=== PATIENT | male | born 1945 | race Caucasian/White ===

== ENCOUNTER 2019-12-11 05:10 | Day surgery (SDC) | payer OTHER, SELFPAY ==
[2019-12-10 15:32] VITALS: BMI 23.1
[2019-12-11] VITALS (13 sets, daily range): BP systolic 130–167; BP diastolic 73–110; PULSE 59–73; RESP 13–19; TEMP 37–37.4; O2SAT 97–100
--- NOTE | ~2019-12-11 | XR_ITS ---
EXAMINATION: XR chest 1V portable DATE: 12/11/2019 16:13 INDICATION: Pacemaker insertion TECHNIQUE: frontal view of the chest was obtained. COMPARISON: None FINDINGS: The lungs are clear with no focal airspace opacities, pulmonary edema, pleural effusion or pneumothor ax. The cardiomediastinal silhouette is normal. Skin serena overlying a left infraclavicular cardiac pacemaker with 2 leads with distal tip projecting over the right atrial appendage and at the apex of the right ventricle. Moderate thoracic spondylosis. IMPRESSION: 1. Dual-lead cardiac pacemaker in expected position. No acute cardiopulmonary disease. Reviewed, dictated and finalized at location A. R INSPECTOR IMPRESSION: 1. Dual-lead cardiac pacemaker in expected position. No acute cardiopulmonary d isease.
--- NOTE | ~2019-12-11 | XR_ITS ---
EXAMINATION: XR chest 2V DATE: 12/12/2019 09:04 INDICATION: Pacer placement. TECHNIQUE: Frontal and lateral views of the chest were obtained. COMPARISON: Chest single view 12/11/2019 FINDINGS: There is a tiny left pleural effusion. No pneumonia or pneumothorax. The heart size is norm al. There is a left chest wall pacer with leads in the right atrium and right ventricle. There is a c ompression fracture of mid thoracic spine, likely chronic. IMPRESSION: 1. Tiny left pleural effusion. Reviewed, dictated and finalized at location A. UAGE AND LITERATURE DIVISION CHAIR
--- NOTE | 2019-12-11 12:30 | ECG_ITS ---
Measurements Intervals [place] Rate: 61 P: 66 MN: 178 QRS: -66 QRSD: 182 T: 74 QT: 476 QTc: 482 Interpretive Statements ELECTRONIC ATRIAL PACEMAKER ELECTRONIC VENTRICULAR PACEMAKER NO FURTHER INTERPRETATION IS POSSIBLE ATYPICAL ECG Electronically Signed On 12-11-2019 16:19:02 CONCRETE PUMP OPERATOR HELPER by Tim Feliciano D.O.
--- NOTE | 2019-12-11 13:24 | P.HP_ITS ---
H&P: HPI History of Present Illness Chief complaint: Syncope, Complete AV Block Narrative: Wes Key is a 74 year old male with history of hypertension, dyslipidemia, was seen because of syncope, noted to have abnormal EKG, subsequently Holter monitor revealed multiple episodes of second-degree and then subsequent episodes of third-degree AV block with 3-1 conduction. He was in the office for stress test, which also showed the same thing post exercise complete AV block, he will be admitted to the hospital for elective insertion of permanent pacemaker Review of Systems Constitutional: Constitutional: Reports fatigue, Reports lethargy and Reports weakness ENT: Reports as per HPI Cardiovascular: Cardiovascular: Reports as per HPI, Denies chest pain and Rep orts palpitations PMFSH Social History Social History Gender identity (if verbalized by the patient): Male Meds Home Medications and Allergies Home Medications Medication Instructions Recorded Confirmed Type allopurinol 300 mg PO DAILY 12/10/19 12/10/19 History aspirin [Aspirin Low Dose] 32 mg PO DAILY 12/10/19 12/10/19 History calcium carbonate [Calcium 600] 600 mg PO DAILY 12/10/19 12/10/19 History clotrimazole See Rx Instructions .ROUTE .COMPLEX 12/10/19 12/10/19 History fluticasone propionate [Aller-Zach] 1 spray INTRANASAL DAILY 12/10/19 12/10/19 History meloxicam 15 mg PO DAILY 12/10/19 12/10/19 History oxybutynin chloride 10 mg PO DAILY 12/10/19 12/10/19 History pravastatin 40 mg PO DAILY 12/10/19 12/10/19 History tamsulosin 0.8 mg PO DAILY 12/10/19 12/10/19 History Allergies Allergy/AdvReac Type Severity Reaction Status Date / Time No Known Allergies Allergy Verified 12/10/19 15:39 Exam Narrative: Exam Narrative: Awake alert oriented x3 not in acute distress Neck is supple no obvious JVD, no carotid bruit Chest: Good air entry bilaterally, lungs are clear to auscultation and percussion bilaterally Cardiovascular: Regular rate and rhythm, 2/6 systolic murmur noted left sternal border Abdomen: Soft nontender bowel sounds positive Extremities: No edema has good pulses distally bilaterally Assessment and Plan Assessment and plan (1) Complete AV block: Code(s): I44.2 - Atrioventricular block, complete Status: Acute Assessment and Plan: He will need permanent pacemaker with dual-chamber pacer, the procedure was discussed with the patient, risks, benefits, and alternative diagnostic and therapeutic measures were explained. He agreed with the procedure (2) Syncope: Code(s): R55 - Syncope and collapse Status: Acute Assessment and Plan: Due to complete AV block (3) Coronary artery disease: Code(s): I25.10 - Atherosclerotic heart disease of [place] coronary artery without angina pectoris Status: Acute
[2019-12-11 13:27] LABS: Basophils Absolute Auto 0.1 K/mm3 (0.0-0.1); Basophils Percent Auto 1.2 % (0.2-1.2); Eosinophils Absolute Auto 0.2 K/mm3 (0-0.3); Eosinophils Percent Auto 2.2 % (0-4.4); Hemoglobin 14.5 g/dL (14.0-18.0); Immature Granulocyte Absolute 0.02 K/mm3 (0.00-0.031); Immature Granulocyte Percent A 0.2 % (0-0.5); Lymphocytes Absolute Auto 2.19 K/mm3 (0.9-3.2); Lymphocytes Percent Auto 26.9 % (18.3-44.2); Mean Corpuscular Hemoglobin 31.3 pg (26-34); Mean Platelet Volume 10.6 fl (7.4-10.4); Monocytes Absolute Auto 0.8 K/mm3 (0.1-0.6); Neutrophils Absolute Auto 4.8 K/mm3 (1.3-6.7); Neutrophils Percent Auto 59.5 % (45.5-73.1); Platelet Count Result 270 k/mm3 (150-375); Red Blood Count 4.63 M/mm3 (4.6-6.20); Red Cell Distribution Width 13.6 % (11.5-14.5); White Blood Count 8.1 K/mm3 (4.5-10.0)
[2019-12-11] MEDS: SODIUM CHLORIDE 0.9% IV 500 ML 100 ML (13:30)
[2019-12-11 13:40] LABS: Blood Urea Nitrogen 22 mg/dL (9-20); Calcium 9.5 mg/dL (8.4-10.2); Carbon Dioxide 23 mmol/L (22-30); Chloride 104 mmol/L (98-107); Estimated CRCL calculation 66 ml/min; Estimated Glomerular Filt Rate > 60; Glucose 85 mg/dL (75-110); Potassium 3.8 mmol/L (3.4-5.0); Sodium 139 mmol/L (137-145)
[2019-12-11 13:49] LABS: Prothrombin Time 12.8 Seconds (11.1-14.7)
--- NOTE | 2019-12-11 15:46 | WPDCARDPROC ---
Cardiac Cath Procedure Note Date of procedure:: 12/11/19 Performing physician:: Roni Johnson MD PATIENT NAME: Wes Key MR #: [id number] DATE OF PROCEDURE: December 11, 2019 PROCEDURE: 1-Dual Chamber Permanent Pacemaker Implantation using fluoroscopy 2. Left subclavian vein venous access using ultrasound guidance. 3. Conscious sedation using 1 mg of Versed 25 mg fentanyl, starting time is 2:00 p.m. ending time is 3:45 p.m. RADAR REPAIRER: Roni Johnson M.D. CLINICAL HISTORY: Symptomatic complete heart block, Syncope PROCEDURE: In a post-absoptive state, the patient was brought to the Cardiac Catheterization Laboratory. The left hemithorax was prepped and draped in the usual sterile fashion. The skin was infiltrated with 1% Xylocaine for regional anesthesia. One venipuncture was easily made into the left subclavian vein using a micro puncture kit. The guidewire was positioned in the right atrium while a pacemaker pocket was constructed with sharp and blunt dissection and electrocautery. A 7.0 Safe sheath was used to pass the Medtronic ventricular 4074-58 lead to the right ventricle. Another 7.0 [place] Safe sheath was used to pass the Medtronic atrial 5076-52 lead to the right atria appendage. Good pacing and sensing parameters were obtained. The leads were sutured in place with 2-0 Silk ties, following which the guide wires were removed. The leads were then attached to a dual chamber pulse generator, which was noted to be pacing and sensing appropriately. The wound was then irrigated with Vancomycin solution following which, subcutaneous tissues were closed with 2.0 Vicryl, and then Johanna. Aquacel Ag was also applied to the pacemaker incision site along with a pressure dressing. The patient tolerated the procedure very well, experienced no difficulties, and returned to her room in good condition. Atrial Lead: Medtronic model # 5076-52, serial # [id number] Threshold: 0.5 Volts, 0.5 mA Impedance: 555 Ohms P Wave sensin.6 mV Ventricular Lead: Medtronic model # 4074-58, serial # [id number] Threshold: 0.25 Volts, 0.5 mA Impedance: 817 Ohms R Wave sensin mV Pulse Generator: [employer] [facility] [place] XT DR CAVANAUGH, serial # [id number] Mode: DDD Programmed Rate: 60 Upper Tracking Rate: 130 Upper Sensor Rate: 130 AV Delay (Paced): 180 AV Delay (Sensed): 150 Atrial Ventricular Output Amplitude: 3.5 Volts 3.5 Volts Pulse Duration: 0.4 msec 0.4 msec Sensitivity: 0.3 mV 0.6 mV
--- NOTE | 2019-12-11 15:50 | SUR.PHASEII ---
BEGIN PHASE II RECOVERY. RETURNS TO CHARGING CRANE OPERATOR 5 VIA STRETCHER S/P PERMANENT PACEMAKER PLACEMENT TO L. CHEST W/ DR. GORDON . AWAKE AND ALERT. DENIES PAIN OR SOB ON ARRIVAL. L. UPPER CHEST W/ C/D/I AQUACELL DRESSING PRESENT. NO REDNESS OR SWELLING NOTED. L. RADIAL PULSE STRONG. L. FINGERS W/ WNL CAPILLARY REFILL, MOVEMENT AND SENSATION. REVIEWED MOVEMENT RESTRICTIONS FOR L. ARM AND BEDREST ORDERS. POST PPM EKG COMPLETED AND SLING PLACED ON L. ARM. AWAIT PCXR. MONITOR VPACED AT 61. WILL MONITOR.
--- NOTE | 2019-12-11 16:50 | SUR.PHASEII ---
1650: END PHASE II RECOVERY. PT. ADMITTED TO EXTENDED RECOVERY AT THIS TIME POST PPM INSERTION PROCEDURE. PT. TO REMAIN IN CAR DISTRIBUTOR 5 OBSERVATION STATUS. CARE COORDINATION AND ADMITTING NOTIFIED. SEE PCS FOR CONTINUED DOCUMENTATION. L. UPPER CHEST DRESSING UNCHANGED. REMAINS PAIN FREE. L. RADIAL PULSE REMAINS STRONG W/ CAP REFILL, SENSATION, MOVEMENT OF L. HAND WNL. SLING REMAINS ON L. ARM. PCXR POST PROCEDURE HAS BEEN COMPLETED. VSS. MONITOR AV PACED AT 60. IVF'S RUNNING ORDERED. WILL CONTINUE TO MONITOR. , NESTOR, AT BEDSIDE.
[2019-12-11] MEDS: SODIUM CHLORIDE 0.9% IV 1,000 ML 50 ML IV CONT (18:30)
--- NOTE | 2019-12-11 19:31 | ADMGEN ---
1651: This patient, Wes Key, was admitted to EXTENDED RECOVERY S/P INSERTION OF PPM IN [facility]. Patient/family oriented to hospital policies and general routines including ID bracelet, bed and alarms, visiting hours, pain management, procedures, bathroom and other care routines, personal items, smoking policy, room service/diet, and visiting hours. Valuables list has been completed. Information on how to activate the Rapid Response Team has been discussed. Patient/Family are encouraged to report perceived risks to care and to ask questions if they do not understand what they are told or what they should do.
[2019-12-11] MEDS: PRAVASTATIN SODIUM 20 MG TABLET 40 MG PO (19:53)
[2019-12-11] MEDS: CALCIUM CARBONATE (OSCAL) 500 MG TABLET PO (19:54)
[2019-12-11] MEDS: TAMSULOSIN HCL 0.4 MG CAPSULE 0.8 MG PO (19:54)
[2019-12-11] MEDS: ACETAMINOPHEN 325 MG TABLET 650 MG PO (22:28)
[2019-12-12] VITALS: BP 128/68; PULSE 71; RESP 16; O2SAT 96
[2019-12-12 02:00] VITALS: PULSE 66
[2019-12-12 04:00] VITALS: BP 144/70; PULSE 74; RESP 16; TEMP 37.2; O2SAT 96
[2019-12-12 06:00] VITALS: PULSE 80
[2019-12-12 07:56] VITALS: PULSE 76
[2019-12-12] MEDS: METOPROLOL SUCCINATE EXT REL 25 MG TABCR PO (07:56)
[2019-12-12] MEDS: MELOXICAM 7.5 MG TABLET 15 MG PO (07:56)
[2019-12-12] MEDS: ASPIRIN 81 MG ENTERIC TABLET PO (07:57)
[2019-12-12] MEDS: allopurinoL 300 MG TABLET PO (07:57)
[2019-12-12] MEDS: FLUTICASONE PROPIONATE 0.05% NA SPR 16 GM BTL (*BKC) 1 SPRAY NASAL (07:57)
[2019-12-12 08:00] VITALS: BP 144/78; PULSE 79; PULSE 86; RESP 14; TEMP 37.4; O2SAT 96
--- NOTE | 2019-12-12 08:09 | PM.DS ---
DS: Diagnosis Admitting Diagnosis Admitting Diagnosis: Atrioventricular block, complete DS: Summary Time Spent with Patient Time attestation: Total time spent providing and/or coordinating discharge services: He is admitted to the hospital for elective insertion of permanent pacemaker, he underwent pacemaker placement with dual-chamber pacer, today's am seeing any feels well the pacing is appropriate, the discharged home on the above medication, to have a follow-up with me in 1 week for serena removal Exam Narrative: Exam Narrative: Awake alert oriented x3 not in acute distress Neck is supple no obvious JVD, no carotid bruit Chest: Good air entry bilaterally, lungs are clear to auscultation and percussion bilaterally Cardiovascular: Regular rate and rhythm, 2/6 systolic murmur noted left sternal border Abdomen: Soft nontender bowel sounds positive Extremities: No edema has good pulses distally bilaterally DS: Data Data Completed and Pending Labs on day of discharge: Labs from last 24 hours 12/11/19 12/11/19 12/11/19 13:22 13:22 13:22 WBC 8.1 RBC 4.63 Hgb 14.5 Hct 44.0 MCV 95.0 MCH 31.3 MCHC 33.0 RDW 13.6 Plt Count 270 MPV 10.6 H Immature Gran % (Auto) 0.2 Neut % (Auto) 59.5 Lymph % (Auto) 26.9 [place] % (Auto) 10.0 H Eos % (Auto) 2.2 Baso % (Auto) 1.2 Lymph # (Auto) 2.19 [place] # (Auto) 0.8 H Eos # (Auto) 0.2 Baso # (Auto) 0.1 Abs Immat Gran (auto) 0.02 Absolute Neuts (auto) 4.8 Absolute Nucleated RBC 0.0 Nucleated RBC % 0.0 PT 12.8 INR 1.0 Sodium 139 Potassium 3.8 Chloride 104 Carbon Dioxide 23 BUN 22 H Creatinine 0.90 Estim Creat Clear Calc 66 Estimated GFR > 60 Glucose 85 Calcium 9.5 Discharge Plan Discharge Patient Disposition: Home, Self-Care Discharge Medications: Continued oxybutynin chloride 10 mg Tablet Extended Release 24hr 10 mg PO DAILY RF: 0 pravastatin 40 mg Tablet 40 mg PO DAILY RF: 0 meloxicam 15 mg Tablet 15 mg PO DAILY RF: 0 aspirin [Aspirin Low Dose] 81 mg Tablet,Delayed Release (Dr/Ec) 81 mg PO DAILY RF: 0 calcium carbonate [Calcium 600] 600 mg calcium (1,500 mg) Tablet 600 mg PO DAILY RF: 0 tamsulosin 0.4 mg Capsule 0.8 mg PO DAILY RF: 0 allopurinol 300 mg Tablet 300 mg PO DAILY RF: 0 fluticasone propionate [Aller-Zach] 50 mcg/actuation [place],Suspension 1 spray INTRANASAL DAILY RF: 0 clotrimazole cream See Rx Instructions .ROUTE .COMPLEX RF: 0
--- NOTE | 2019-12-12 08:15 | PC.NURSE ---
DR. GORDON HERE TO SEE PT. CONDITION UPDATE GIVEN. [employer] PACEMAKER REP HERE TO INTERROGATE NEW PPM.
--- NOTE | 2019-12-12 08:55 | PC.NURSE ---
DOWN VIA WC FOR 2 VIEW CXR ORDERED.
--- NOTE | 2019-12-12 09:06 | PC.NURSE ---
RETURNS TO COURT REGISTRY OFFICER 5 FROM 2 VIEW CXR VIA WC.
--- NOTE | 2019-12-12 09:38 | PC.NURSE ---
NOTIFIED DR. GORDON OF RESULTS OF 2VIEW CXR POST PPM. OK TO PROCEED W/ DISCHARGE HOME.
== END 2019-12-12 10:00 | disposition home or self-care (01) ==
LOC: ANHCATHLAB 12:59 → ANHCPC 17:18
PROVIDERS: Visit Provider Specialist
PROC: 0JH606Z Insertion of Pacemaker, Dual Chamber into Chest Subcutaneous Tissue and Fascia, Open Approach (ICD-10-PCS; CPT 33208; principal; 2019-12-11 14:00)
DX: I44.2 Atrioventricular block, complete (principal); R55 Syncope and collapse; I25.10 Atherosclerotic heart disease of native coronary artery without angina pectoris; I48.91 Unspecified atrial fibrillation; I10 Essential (primary) hypertension; E78.5 Hyperlipidemia, unspecified
CPT/HCPCS: 33208; 36415; 71045; 71046; 80048; 85025; 85610; 93005; A9270; C1779; C1785; C1894; C1898; J0690; J2250; J3010; J7030; J7040